=== PATIENT | male | born 1990 | race Caucasian/White ===

== ENCOUNTER → 2016-10-03 | Outpatient (CLI) | payer OTHER ==
--- NOTE | 2016-10-04 16:11 | SLEEP ---
DATE OF STUDY: 10/03/2016 REFERRING PHYSICIAN: SONAL Feldman The patient is 26 years old who weighs 255 pounds with a BMI of 38. The patient's [place] score was 9. Home sleep study was performed by [facility]. Total recording time was 487 minutes. During the night study, the patient had 1 central apnea, 29 obstructive apneas, 10 mixed apneas and 49 hypopneas. The patient's apnea-hypopnea index was 11 per hour, supine index 12 per hour. Review of nocturnal oximetry study revealed an average oxygen saturation of 93% with the lowest of 79%. 18 minutes were spent in oxygen saturation of less than 90%. Mean heart rate was 67 beats per minute. IMPRESSION: 1. Mild sleep apnea-hypopnea syndrome at an AHI of 11 per hour. 2. Nocturnal hypoxia secondary to obstructive sleep apnea. RECOMMENDATIONS: 1. The patient has mild sleep apnea. This can be treated with either an oral appliance or a trial of CPAP titration. 2. If the patient undergoes CPAP titration, then he should be followed up in 4-6 weeks to assess compliance with CPAP and to document clinical improvement. 3. Weight loss is strongly advised. 4. Avoid RIB KNITTER depressants. 5. Caution regarding driving until symptoms of sleep apnea resolve with the above recommendations. SARATH NESS MD DR: PATRIZIA/claudia JOB#: [id number] / [id number] ROD Roach
== END | disposition home or self-care (01) ==
LOC: RT 09:43
PROVIDERS: ATTEND Physician Assistant
DX: G47.33 Obstructive sleep apnea (adult) (pediatric) (principal)
CPT/HCPCS: G0399

== ENCOUNTER → 2016-12-13 | Outpatient (CLI) | payer OTHER ==
--- NOTE | 2016-12-14 10:36 | SLEEP ---
DATE OF STUDY: 12/13/2016 ATTENDING PHYSICIAN: Dr. Iris Liu. The patient is 26 years old who weighs 250 pounds with a BMI of 38. The patient's [place] score was 15. The patient had a previous sleep study which showed JANENE with an AHI of 11 per hour. The patient underwent CPAP titration study due to persistent hypersomnia. During the night study, the patient spent 392 minutes in bed and slept for 350 minutes with a sleep efficiency of 89%. Sleep latency was 12 minutes with a REM latency of 114 minutes. Overall, sleep architecture showed normal stage I and stage II sleep, normal slow wave and normal REM sleep. The patient was started on CPAP at 5 cm water and titrated up to 15 cm of water. At the final pressure, the patient slept for 126 minutes. The patient had supine as well as long REM sleep. AHI was reduced to 2 per hour and oxygen saturation remained above 89%. The patient used a medium size full face mask. EKG monitoring revealed normal sinus rhythm. No sustained arrhythmias were observed. Average heart rate was 72 beats per minute. PLMS were not seen. IMPRESSION: 1. Sleep apnea diagnosed by previous sleep study. 2. No clinically significant periodic limb movements in sleep. RECOMMENDATIONS: 1. CPAP at 15 cm of water completely eliminated the patient's sleep apnea and should be used on a nightly basis. 2. Follow up in 4 to 6 weeks to assess compliance with CPAP and to document clinical improvement. 3. Weight loss is strongly advised. 4. Avoid [employer]ATOR depressants. 5. Caution regarding driving until symptoms of sleep apnea resolve with the use of CPAP. SARATH NESS MD DR: PATRIZIA/claudia JOB#: [id number] / [id number] IRIS Nieves MD
== END | disposition home or self-care (01) ==
LOC: RT 22:05
PROVIDERS: ATTEND Family Medicine
DX: G47.33 Obstructive sleep apnea (adult) (pediatric) (principal)
CPT/HCPCS: 95811